=== PATIENT | male | born 1980 | race Hispanic/Latino ===

== ENCOUNTER 2022-07-09 09:11 | Inpatient (IN) | payer OTHER ==
[2022-07-09] MEDS ORDERED: LIDOCAINE VISCOUS 2% SOLN 15 ML UDC ONE (09:23)
[2022-07-09] MEDS ORDERED: MAGNES/ALUMIN/SIMET 30ML UCUP ONE (09:23)
[2022-07-09] MEDS ORDERED: LORAZEPAM 1 MG TABLET ONE (09:55)
[2022-07-09] MEDS ORDERED: MORPHINE 4 MG/ML SYR ONE (10:19)
[2022-07-09] MEDS ORDERED: ONDANSETRON 4 MG/2 ML VIAL ONE ×2 (10:20→16:00)
[2022-07-09] MEDS ORDERED: FAMOTIDINE 20 MG/2 ML VIAL IV ONE (10:20)
[2022-07-09] MEDS ORDERED: NA CHLORIDE 0.9% 1,000 ML ONE (10:20)
[2022-07-09 11:17] LABS: Albumin 4.3 g/dL (3.4-5.0); Bilirubin Total 0.4 mg/dL (0.2-1.0); Potassium 4.3 mmol/L (3.5-5.1); Protein, Total 8.9 g/dL (6.4-8.2)
[2022-07-09 11:27] LABS: Absolute Lymphocytes (CBC) 1.1 K/uL (0.7-4.9); MCV 87.4 fL (80-100); MPV 8.6 fL (7.6-11.3); RBC Red Blood Cell Count 5.72 M/uL (4.33-5.43)
--- NOTE | 2022-07-09 11:35 | RAD REPORT ---
EXAM DESCRIPTION: CT - Chest For Pe Angio - 07/09/2022 11:17 am CLINICAL HISTORY: Chest pain COMPARISON: None. TECHNIQUE: Dynamically enhanced axial 3 mm thick images of the chest were obtained during administra tion of <100> mL Isovue 370 IV contrast. Coronal and oblique reconstruction images were generated and reviewed. Exam utilizes a protocol for optimal evaluation of pulmonary arterial tree. Maximum intensity projections 3D imaging was utilized All CT scans are performed using dose optimization technique as appropriate and may include automated exposure control or mA/KV adjustment according to patient size. FINDINGS: A pulmonary embolus is not seen. A thoracic aortic aneurysm is not noted. A pleural effusion is not seen. A pericardial effusion is not seen. A lung consolidation is not present. IMPRESSION: Negative for a pulmonary embolism.
--- NOTE | 2022-07-09 11:39 | RAD REPORT ---
EXAM DESCRIPTION: US - Abdomen Exam Limited - 07/09/2022 10:07 am CLINICAL HISTORY: Abdominal pain. COMPARISON: None. FINDINGS: A 2 centimeters stone impacted in the neck of the gallbladder. The biliary tree is normal caliber. IMPRESSION: 2 centimeter impacted gallstone. No evidence of cholecystitis
--- NOTE | 2022-07-09 11:39 | RAD REPORT ---
EXAM DESCRIPTION: CT - Abdomen Pelvis W Contrast - 07/09/2022 11:18 am CLINICAL HISTORY: Abdominal pain. Epigastric pain COMPARISON: none. TECHNIQUE: Computed axial tomography of the abdomen pelvis was obtained. 100 cc Isovue-300 was admin istered intravenously. Oral contrast was not requested which limits evaluation of bowel and appendix All CT scans are performed using dose optimization technique as appropriate and may include automated exposure control or mA/KV adjustment according to patient size. FINDINGS: The liver, spleen, pancreas, adrenal and kidneys appear unremarkable. Gallbladder wall is not thickened Normal appendix Moderate left and small right inguinal hernias contain fat the. Small umbilical hernia There is no evidence of diverticulitis. IMPRESSION: No acute abnormality is displayed.
--- NOTE | 2022-07-09 13:09 | EDPHYS ---
Physician Documentation [facility] Name: James Singh Age: 41 yrs Sex: Male : 1980 Arrival Date: 07/09/2022 Time: 09:12 Bed 20 Private MD: ED Physician Wilberto Hurtado HPI: 07/09 09:30 This 41 yrs old Male presents to ER via Ambulatory with complaints of Chest jh7 Pain. 09:30 Onset: The symptoms/episode began/occurred last night. Associated signs and symptoms: jh7 Pertinent positives: abdominal pain, chest pain, vomiting, Pertinent negatives: fever, shortness of breath, wheezing. 09:30 41-year-old male with no known past medical history presents with chest pain after jh7 vomiting. The patient stated that he thinks he may have GERD and vomited 15 times last night. Reported severe chest pain after the vomiting that is substernal as well as epigastric pain. Reports that he has not seen a doctor since he was 18 years old.. Historical: - Allergies: 09:30 No Known Allergies; ph - PMHx: 09:30 None; ph - Immunization history:: Adult Immunizations unknown. - Social history:: Smoking status: Patient reports the use of cigarette tobacco products, denies chronic smoking, but will smoke occasionally, Patient uses alcohol, occasionally. ROS: 09:30 Constitutional: Negative for fever, chills, and weight loss, Eyes: Negative for injury, jh7 pain, redness, and discharge, ENT: Negative for injury, pain, and discharge, Respiratory: Negative for shortness of breath, cough, wheezing, and pleuritic chest pain, Back: Negative for injury and pain, MS/Extremity: Negative for injury and deformity, Skin: Negative for injury, rash, and discoloration, Neuro: Negative for headache, weakness, numbness, tingling, and seizure. 09:30 Cardiovascular: Positive for chest pain, Negative for orthopnea, palpitations. 09:30 Abdomen/GI: Positive for abdominal pain, nausea and vomiting, Negative for diarrhea, constipation. 09:30 All other systems are negative. Exam: 09:30 Head/Face: Normocephalic, atraumatic. Eyes: Pupils equal round and reactive to light, jh7 extra-ocular motions intact. Lids and lashes normal. Conjunctiva and sclera are non-icteric and not injected. Cornea within normal limits. Periorbital areas with no swelling, redness, or edema. ENT: Nares patent. No nasal discharge, no septal abnormalities noted. Tympanic membranes are normal and external auditory canals are clear. Oropharynx with no redness, swelling, or masses, exudates, or evidence of obstruction, uvula midline. Mucous membranes moist. Neck: Trachea midline, no thyromegaly or masses palpated, and no cervical lymphadenopathy. Supple, full range of motion without nuchal rigidity, or vertebral point tenderness. No Meningismus. Cardiovascular: Regular rate and rhythm with a normal S1 and S2. No gallops, murmurs, or rubs. Normal PMI, no JVD. No pulse deficits. Respiratory: Lungs have equal breath sounds bilaterally, clear to auscultation and percussion. No rales, rhonchi or wheezes noted. No increased work of breathing, no retractions or nasal flaring. Back: No spinal tenderness. No costovertebral tenderness. Full range of motion. Skin: Warm, dry with normal turgor. Normal color with no rashes, no lesions, and no evidence of cellulitis. MS/ Extremity: Pulses equal, no cyanosis. Neurovascular intact. Full, normal range of motion. Neuro: Awake and alert, GCS 15, oriented to person, place, time, and situation. Motor strength 5/5 in all extremities. Sensory grossly intact. Normal gait. 09:30 Constitutional: The patient appears alert, awake, in obvious distress, moderately distressed. 09:30 Chest/axilla: Palpation: tenderness, that is moderate, of the diaphragm and xiphoid area, that partially reproduces the patient's complaints. 09:30 Abdomen/GI: Inspection: abdomen appears normal, Bowel sounds: normal, Palpation: soft, in all quadrants, moderate abdominal tenderness, in the epigastric area. Vital Signs: 09:27 BP 154 / 100; Pulse 86; Resp 24; Temp 97.8; Pulse Ox 99% on R/A; Weight 90.72 kg; ph Height 5 ft. 6 in. (167.64 cm); Pain 10/10; 12:00 BP 146 / 96; Pulse 81; Resp 16; Pulse Ox 96% on R/A; Pain 4/10; eh3 09:27 Body Mass Index 32.28 (90.72 kg, 167.64 cm) ph MDM: 09:18 Patient medically screened. [facility] 13:09 Differential diagnosis: Cholecystitis, cholelithiasis, aortic dissection, pulmonary [facility] embolism, gastritis, GERD, acute [place], bowel obstruction. Data reviewed: vital signs, nurses notes. Consideration of Admission/Observation Patient was admitted/placed on observation. Management of patient was discussed with the following: Roll Carrier: French Lockett, General Surgery. I considered the following discharge prescriptions or medication management in the emergency department Medications were administered in the Emergency Department. See MAR. Independent interpretation of the following test(s) in the Emergency Department EKG: See my EKG interpretation above. Historians other than the Patient: Spouse/Significant Other: . Counseling: I had a detailed discussion with the patient and/or guardian regarding: the historical points, exam findings, and any diagnostic results supporting the discharge/admit diagnosis, the need for further work-up and treatment in the hospital. ED course: Spoke to Dr. Lockett who requested to start Zosyn, put the patient n.p.o., in order morning labs and pain meds in the admission orders. Explained to the patient that he would be admitted for surgery.. 07/09 09:32 Order name: CBC with Diff; Complete Time: 11:40 [facility] 07/09 09:32 Order name: CMP; Complete Time: 11:40 [facility] 07/09 09:32 Order name: Lipase; Complete Time: 11:40 [facility] 07/09 11:41 Order name: Troponin High Sensitivity; Complete Time: 13:01 [facility] 07/09 13:21 Order name: SARS RAPID [facility] 07/09 14:13 Order name: SARS-COV-2 Antigen Rapid; Complete Time: 15:49 [facility] 07/09 09:32 Order name: CT Abd/Pelvis - IV Contrast Only; Complete Time: 11:40 [facility] 07/09 09:32 Order name: CT Chest For PE Angio; Complete Time: 11:40 [facility] 07/09 09:32 Order name: US Abdomen Limited; Complete Time: 11:40 [facility] 07/09 09:32 Order name: IV Saline Lock; Complete Time: 10:52 [facility] 07/09 09:32 Order name: Labs collected and sent; Complete Time: 10:52 [facility] 01/15 13:07 Order name: NPO; Complete Time: 13:45 [facility] EC:18 Rate is 86 beats/min. Rhythm is regular. QRS [place] is Normal. [place] interval is normal at [facility] 136 msec. QRS interval is normal at 88 msec. QT interval is normal. No Q waves. T waves are Normal. No ST changes noted. Clinical impression: Normal ECG. Administered Medications: 09:22 Drug: GI Cocktail without - (Maalox Suspension 30 ml, Lidocaine Liquid 2 % 15 ph ml) Route: PO; 12:25 Follow up: Response: Pain is decreased eh3 09:55 Drug: Ativan (LORazepam) 1 mg Route: PO; ph 12:21 Follow up: Response: Anxiety decreased ph 11:00 Drug: NS 0.9% 1000 ml Route: IV; Rate: 1 bolus; Site: left antecubital; ph 14:42 Follow up: IV Status: Infusion continued upon admission 3 11:00 Drug: Pepcid (famotidine) 20 mg Route: IVP; Site: left antecubital; ph 12:21 Follow up: Response: No adverse reaction ph 11:02 Drug: Zofran (Ondansetron) 4 mg Route: IVP; Site: left antecubital; ph 12:21 Follow up: Response: Nausea is decreased ph 11:04 Drug: morphine 4 mg Route: IVP; Infused Over: 4 mins; Site: left antecubital; ph 12:21 Follow up: Response: Pain is decreased ph 14:00 Drug: Dilaudid (HYDROmorphone) 0.5 mg Route: IVP; Site: left antecubital; eh3 14:42 Follow up: Response: Pain is decreased eh3 14:00 Drug: Zosyn (piperacillin-tazobactam) 3.375 grams Route: IVPB; Infused Over: 60 mins; 3 Site: left antecubital; 14:42 Follow up: IV Status: Infusion continued upon admission 3 Disposition Summary: 07/09/22 13:08 Hospitalization Ordered Hospitalization Status: Inpatient Admission [facility] Provider: French Khan [facility] Location: Telemetry/MedSurg (Inpatient) [facility] Condition: Fair [facility] Problem: new [facility] Symptoms: are unchanged [facility] Bed/Room Type: Standard [facility] Room Assignment: [facility] Diagnosis - Other cholelithiasis with obstruction jh7 Forms: - Medication Reconciliation Form jh7 - SBAR form jh7 Signatures: Dispatcher [employer] Radha Stout RN RN Toshia Jacobson RN RN [facility] Hanna Burt, DB2 DBA DB2 DBA 7 Corrections: (The following items were deleted from the chart) 11:55 09:30 Associated signs and symptoms: Pertinent positives: abdominal pain, chest pain, jh7 vomiting, Pertinent negatives: fever, shortness of breath, wheezing, jh7 11:55 11:54 41-year-old male with no known past medical history presents with chest pain jh7 after vomiting. The patient stated that he thinks he may have GERD and vomited 15 times last night. Reported severe chest pain after the vomiting that is substernal as well as epigastric pain. Reports that he has not seen a doctor since he was 18 years old.. jh7
--- NOTE | 2022-07-09 13:09 | ER ---
Nurse's Notes [facility] Name: James Singh Age: 41 yrs Sex: Male : 1980 Arrival Date: 07/09/2022 Time: 09:12 Bed 20 Private MD: Diagnosis: Other cholelithiasis with obstruction Presentation: 07/09 09:27 Chief complaint: Patient states: Midsternal chest pain that radiates to L breast, ph started last night at approx 10 pm, also reports nausea and vomiting and SOB. Coronavirus screen: Vaccine status: Patient reports being unvaccinated. Ebola Screen: No symptoms or risks identified at this time. Initial Sepsis Screen: Does the patient meet any 2 criteria? No. Patient's initial sepsis screen is negative. Does the patient have a suspected source of infection? No. Patient's initial sepsis screen is negative. Risk Assessment: Do you want to hurt yourself or someone else? Patient reports no desire to harm self or others. Onset of symptoms was July 09, 2022. 09:27 Method Of Arrival: Ambulatory ph 09:27 Acuity: JULITO 2 ph Triage Assessment: 09:33 General: Appears uncomfortable, well groomed, Behavior is anxious. Pain: Complains of ph pain in left breast. Neuro: Level of Consciousness is awake, alert, obeys commands, Oriented to person, place, time, situation. Cardiovascular: Capillary refill < 3 seconds in bilateral fingers Patient's skin is warm and dry. Respiratory: Airway is patent Respiratory effort is even, unlabored, Respiratory pattern is regular, symmetrical. GI: Reports nausea, vomiting. Derm: Skin is healthy with good turgor, Skin is pink, warm \\T\\ dry. Musculoskeletal: Circulation, motion, and sensation intact. Range of motion: intact in all extremities. Historical: - Allergies: 09:30 No Known Allergies; ph - PMHx: :30 None; ph - Immunization history:: Adult Immunizations unknown. - Social history:: Smoking status: Patient reports the use of cigarette tobacco products, denies chronic smoking, but will smoke occasionally, Patient uses alcohol, occasionally. Screenin:30 [facility] ED Fall Risk Assessment (Adult) History of falling in the last 3 months, ph including since admission No falls in past 3 months (0 pts) Confusion or Disorientation No (0 pts) Intoxicated or Sedated No (0 pts) Impaired Gait No (0 pts) Mobility Assist Device Used No (0 pt) Altered Elimination No (0 pt) Score/Fall Risk Level 0 - 2 = Low Risk Oriented to surroundings, Maintained a safe environment. Abuse screen: Denies threats or abuse. Denies injuries from another. Nutritional screening: No deficits noted. Tuberculosis screening: No symptoms or risk factors identified. Assessment: 09:50 General: SEE TRIAGE ASSESSMENT. 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 ERP notified of pt's severe anxiety and PO anxiety medication ordered, see AUG. 11:09 Reassessment: Pt had 1 episode of vomiting which he states relieved his pain somewhat, ph states, " It's coming back a little but not as bad as it was." Taken to CT via stretcher. 12:00 General: Appears in no apparent distress. uncomfortable, Behavior is calm, cooperative, eh3 appropriate for age. Pain: Complains of pain in epigastric area Pain radiates to left breast Pain began suddenly. Neuro: Level of Consciousness is awake, alert, obeys commands, Oriented to person, place, time, situation. Cardiovascular: Capillary refill < 3 seconds Patient's skin is warm and dry. Rhythm is sinus rhythm. Respiratory: Airway is patent Respiratory effort is even, unlabored, Respiratory pattern is regular, symmetrical. GI: Abdomen is round non-distended, Reports upper abdominal pain, nausea, vomiting. : No signs and/or symptoms were reported regarding the genitourinary system. EENT: No signs and/or symptoms were reported regarding the EENT system. Derm: No signs and/or symptoms reported regarding the dermatologic system. Skin is pink, warm \\T\\ dry. Musculoskeletal: No signs and/or symptoms reported regarding the musculoskeletal system. Circulation, motion, and sensation intact. Range of motion: intact in all extremities. 13:00 Reassessment: Patient appears in no apparent distress at this time. Patient and/or eh3 family updated on plan of care and expected duration. Pain level reassessed. Patient is alert, oriented x 3, equal unlabored respirations, skin warm/dry/pink. Vital Signs: 09:27 BP 154 / 100; Pulse 86; Resp 24; Temp 97.8; Pulse Ox 99% on R/A; Weight 90.72 kg; ph Height 5 ft. 6 in. (167.64 cm); Pain 10/10; 12:00 BP 146 / 96; Pulse 81; Resp 16; Pulse Ox 96% on R/A; Pain 4/10; eh3 09:27 Body Mass Index 32.28 (90.72 kg, 167.64 cm) ph ED Course: 09:12 Patient arrived in ED. mr 09:18 Haileeestelle Hanna, [facility] 09:18 Wilberto Hurtado MD is Attending Physician. [facility] 09:19 Radha Jacobson, RN is Primary Nurse. ph 09:30 Triage completed. ph 09:30 Arm band placed on right wrist. Patient placed in an exam room, on supervisor refining, on ph pulse oximetry. 09:31 Patient has correct armband on for positive identification. Bed in low position. Call ph light in reach. Side rails up X 1. Client placed on continuous cardiac and pulse oximetry monitoring. NIBP monitoring applied. 09:36 Patient maintains SpO2 saturation greater than 95% on room air. ph 10:08 US Abdomen Limited In Process Unspecified. EDMS 11:19 CT Chest For PE Angio In Process Unspecified. EDMS 11:20 CT Abd/Pelvis - IV Contrast Only In Process Unspecified. EDMS 13:07 French Khan MD is Hospitalizing Provider. [facility] 13:45 SARS RAPID Sent. 3 14:43 No provider procedures requiring assistance completed. Patient admitted, IV remains in eh3 place. Administered Medications: 09:22 Drug: GI Cocktail without - (Maalox Suspension 30 ml, Lidocaine Liquid 2 % 15 ph ml) Route: PO; 12:25 Follow up: Response: Pain is decreased 3 09:55 Drug: Ativan (LORazepam) 1 mg Route: PO; ph 12:21 Follow up: Response: Anxiety decreased ph 11:00 Drug: NS 0.9% 1000 ml Route: IV; Rate: 1 bolus; Site: left antecubital; ph 14:42 Follow up: IV Status: Infusion continued upon admission 3 11:00 Drug: Pepcid (famotidine) 20 mg Route: IVP; Site: left antecubital; ph 12:21 Follow up: Response: No adverse reaction ph 11:02 Drug: Zofran (Ondansetron) 4 mg Route: IVP; Site: left antecubital; ph 12:21 Follow up: Response: Nausea is decreased ph 11:04 Drug: morphine 4 mg Route: IVP; Infused Over: 4 mins; Site: left antecubital; ph 12:21 Follow up: Response: Pain is decreased ph 14:00 Drug: Dilaudid (HYDROmorphone) 0.5 mg Route: IVP; Site: left antecubital; 3 14:42 Follow up: Response: Pain is decreased 3 14:00 Drug: Zosyn (piperacillin-tazobactam) 3.375 grams Route: IVPB; Infused Over: 60 mins; 3 Site: left antecubital; 14:42 Follow up: IV Status: Infusion continued upon admission [facility] Medication: 09:31 VIS not applicable for this client. ph Outcome: 13:08 Decision to Hospitalize by Provider. [facility] 14:40 Patient left the ED. [facility] 14:43 Admitted to OR accompanied by tech, family with patient, via wheelchair, Report called 3 to PACU 14:43 Condition: stable 14:43 Instructed on the need for admit. Signatures: Dispatcher [employer] Starla Hu Patricia, RN MAYRA Toshia Jacobson RN RN [facility] Hanna Burt, FURNACE MAINTENANCE FURNACE MAINTENANCE [facility]
[2022-07-09] MEDS ORDERED: PIPERACIL/TAZO 3.375 GM VIAL IV ONE (13:53)
[2022-07-09] MEDS ORDERED: NA CHLORIDE 0.9% 100 ML IV ONE (13:53)
[2022-07-09] MEDS ORDERED: HYDROMORPHONE HCL 0.5 MG/0.5 ML INJ ONE (13:53)
[2022-07-09 14:13] LABS: SARS-CoV-2 Antigen Rapid Res Negative (Negative)
[2022-07-09] MEDS ORDERED: BUPIVACAINE 0.25% PF 10 ML VIAL ONE (14:40)
[2022-07-09] MEDS ORDERED: Ringers Lactate 1,000 ML IV ONE (14:52)
[2022-07-09] MEDS ORDERED: ROCURONIUM 50 MG/5 ML VIAL IV ONE (15:06)
[2022-07-09] MEDS ORDERED: LIDOCAINE 2% MPF 5 ML VIAL ONE (15:06)
[2022-07-09] MEDS ORDERED: propofoL 200 MG/20 ML VIAL IV ONE (15:06)
[2022-07-09] MEDS ORDERED: FENTANYL CITR 100 MCG/2 ML ONE (15:06)
[2022-07-09] MEDS ORDERED: SUCCINYLCHOLINE 20 MG/ML (10 ML) IV ONE (15:11)
--- NOTE | 2022-07-09 15:17 | HP ---
Date of Admission: 07/09/2022 Brief History Of Present Illness: The patient is a 41-year-old male with a 3-year history o f epigastric abdominal pain. He states he has been having this on and off related to greasy meals. It would be associated with sharp pain in the right upper quadrant, sometimes radiating through to hi s back. It would be sharp, intermittent, and that would subside over time. He had bloating and naus ea with occasional vomiting associated with this. Over the past few weeks, the frequency has increas ed significantly and as such, he has noted that his pain got significantly worse, the frequency has i ncreased, and as such he came to the emergency room with the above-stated complaints. Past Medical History: Denies. Past Surgical History: Denies. Allergies: NO KNOWN DRUG ALLERGIES. Medications: None. Social History: He admits to smoking half a pack of cigarettes per day for approximately 10 years. Denies alcohol or recreational drug use. Review of Systems: Ten-point review of systems other than HPI, he feels somewhat feverish. Otherwise negative. He had no physician and has not followed up with any physician since 18 years of age. He is currently 41. Physical Examination: General: At the time of my examination; he is awake, alert, oriented. Psychiatric: Appropriate, conversive. HEENT: He is normocephalic. His sclerae are anicteric. Mucous membranes moist. Oropharynx clear. Neck: Supple without JVD. Chest: Normal expansion and excursion. Cardiovascular: Regular rate and rhythm. Pulmonary: Clear to auscultation bilaterally. Abdomen: Soft with positive epigastric and right upper quadrant tenderness to palpation. Positive M urphy sign. Positive focal guarding. He has an umbilical hernia, which is palpable, but reducible. Extremities: No clubbing, cyanosis, edema. He also feels like he has bilateral inguinal hernias. Skin: Warm and dry otherwise. Vital Signs: Blood pressure 154/100, pulse is 86, respiratory rate 24, temperature was 97.8. Laboratory Data: Revealed a white blood cell count of 14.0, hemoglobin is 17.1, hematocrit of 15.0, platelet count is 282, neutrophils are 88%. Sodium 139, potassium 4.3, chloride 105, carbon dioxide 24, BUN 11, creatinine 0.8, glucose 138, total bilirubin 0.4, AST 19, ALT 39, alkaline phosphatase is 96, lipase 71. He had imaging performed, which included an ultrasound which showed a 2 cm impacted gallstone, the biliary tree is normal in caliber. He additionally had a CT angiogram, which was nega tive for pulmonary embolus. He had a CT of the abdomen and pelvis, officially read as well, as moder ate left and small right inguinal hernias containing fat, small umbilical hernia, no evidence of dive rticulitis. Assessment And Plan: This is a 41-year-old male, who comes in with signs and symptoms of symptomatic biliary colic with an impacted gallstone. 1.IV fluid hydration. 2.Antibiotic coverage with Zosyn 3.375. 3.I have explained the risks, benefits, and alternatives of laparoscopic possible open cholecystecto my with indocyanine green including, but not limited to bleeding, infection, damage to surrounding ti ssue, injury to bile ducts and intestines, need for further operation and procedures. The patient ag gamaliel to proceed as indicated. CRYSTAL/FABY Voice ID: [id number]
[2022-07-09] MEDS ORDERED: dexAMETHasone 10 MG/ML VIAL ONE (15:59)
[2022-07-09] MEDS ORDERED: KETOROLAC 30 MG/ML INJ ONE (16:00)
[2022-07-09] MEDS ORDERED: GLYCOPYRROLATE 0.2 MG/ML SYR ONE ×2 (16:09→16:10)
[2022-07-09] MEDS ORDERED: NEOSTIGMINE 1 MG/ML -10 ML VIAL ONE (16:11)
--- NOTE | 2022-07-09 16:18 | P.OP ---
Preoperative diagnosis: Acute Calculous Cholecystitis Postoperative diagnosis: Acute Calculous Cholecystitis Primary procedure: Laparoscopic Cholecystectomy with ICG Cholangiography Anesthesia: GETA + Local Estimated blood loss: <10cc Specimen: Gallbladder Findings: Acute Calculous Cholecystitis Complications: None Transferred to: Recovery Room Condition: Good
[2022-07-09] MEDS: HYDROMORPHONE HCL 1 MG/ML INJ ONE ×2 (16:48→16:59)
[2022-07-09 16:53] VITALS: O2SAT 98
[2022-07-09] MEDS ORDERED: HYDROMORPHONE HCL 1 MG/ML INJ IV PRN (16:56)
[2022-07-09] MEDS ORDERED: HYDROCODONE/APAP 7.5/325 MG TAB PO PRN (16:56)
[2022-07-09] MEDS ORDERED: ONDANSETRON 4 MG/2 ML VIAL IV PRN ×2 (16:56)
[2022-07-09] MEDS ORDERED: MORPHINE 4 MG/ML SYR IV PRN (16:56)
[2022-07-09] MEDS: NA CHLORIDE 0.9% 1,000 ML IV SCH (17:14)
[2022-07-09] MEDS: PIPER TAZO 3.375 GM in NA CHLORIDE 0.9% 100 ML IV SCH (17:15)
[2022-07-09 17:30] VITALS: BMI 32.3
--- NOTE | 2022-07-09 20:02 | OP ---
Date of Procedure: 07/09/2022 Surgeon: French Khan MD, Preoperative Diagnosis: Acute calculous cholecystitis. Postoperative Diagnosis: Acute calculous cholecystitis. Procedure Performed: Laparoscopic cholecystectomy with ICG (indocyanine green cholangiography). Anesthesia: General endotracheal plus local with 0.25% Marcaine. Estimated Blood Loss: Less than 10 cc. Specimen: Gallbladder. Findings: Acute calculous cholecystitis. Complications: None. Disposition: The patient was transferred to the recovery room in good condition. Procedure In Detail: After informed consent was obtained, the patient brought to the operating room, prepped and draped in the usual sterile fashion after adequate anesthesia was achieved. A supraumbi lical area was anesthetized with 0.25% Marcaine, sharply incised, and a 5 mm trocar was placed under direct visualization without evidence of complication. Insufflation obtained to 15 mmHg at this time . There was no injury to vital structures upon entry into the abdomen. Two additional trocars were placed, 1 in the epigastrium and 1 in the right upper quadrant. Both of these were 5 mm trocars plac ed under direct visualization without evidence of any complication. The umbilical trocar was then up sized to a 12 mm under direct visualization without evidence of complication. The patient was then p ositioned head up right-side up position. Ratcheted graspers were used to grasp the patient's gallbl adder, which was found to be acutely inflamed with early ischemic changes. Significant omental attac hments were noted on the anterior surface completely encasing the gallbladder. This was taken down u sing electrocautery. At this point, I dissected down to the Augustus's pouch of the gallbladder wher e a stone was impacted in the neck of the gallbladder. Grasping was difficult at this point, and as such, a decompression needle was brought in, placed into the fundus of the gallbladder and the gallbl adder was decompressed at this point demarcating the impacted stone at the fundus as well. I dissect ed circumferentially around the fundus of the gallbladder, skeletonizing 2 structures, identified as both the cystic duct and cystic artery. These were skeletonized and a critical view of safety was ob tained at this point. ICG cholangiography was performed at this point confirming the anatomic landma rks as described. At this point, double titanium clips were placed, doubly on the proximal side and singly on the distal side, both the cystic duct and cystic artery. These structures were then ligate d using Endo Elais. The gallbladder was then removed from the hepatic fossa without evidence of com plication. The gallbladder was placed in an EndoCatch bag, removed through the umbilical trocar, and was sent off for pathological examination. At this point, the area was copiously irrigated. There were no additional hemostatic maneuvers required at the gallbladder after suctioning of all the efflu ent. There was no bleeding. The clips were found to be in good anatomic position without any eviden ce of bleeding or bile leakage. The patient was positioned back in a neutral position and remaining effluent was suctioned out. The hepatic fossa was inspected one last time, found to be intact withou t any maneuvers being required. The umbilical trocar site was then closed using a Med soto ture passer with 0 Vicryl in a running fashion with good approximation of tissues. The abdomen was c ompletely desufflated under direct visualization without evidence of complication. The all remaining skin incisions were copiously irrigated and closed with a 4-0 Monocryl in a running fashion. Dermab ond placed over top. The patient tolerated the procedure well without evidence of complication and t ransferred to PACU in good condition. All counts were correct at the end of the case. CRYSTAL/FABY Voice ID: [id number] Report ID: [id number]
[2022-07-10] MEDS: PIPER TAZO 3.375 GM in NA CHLORIDE 0.9% 100 ML IV SCH ×2 (00:19→07:54)
[2022-07-10] MEDS: NA CHLORIDE 0.9% 1,000 ML IV SCH (04:39)
[2022-07-10 06:11] LABS: Absolute Lymphocytes (CBC) 1.8 K/uL (0.7-4.9); Lymphocytes % 14.6 % (15.3-44.8); MCV 88.1 fL (80-100); MPV 8.5 fL (7.6-11.3)
[2022-07-10 06:24] LABS: Albumin 3.4 g/dL (3.4-5.0); Bilirubin Direct 0.1 mg/dL (0-0.2); Bilirubin Total 0.6 mg/dL (0.2-1.0); Protein, Total 7.4 g/dL (6.4-8.2)
[2022-07-10] MEDS ORDERED: INFLUENZA VACCINE (for 6+ mo) 0.5 ML DOSE IMVAC ONE (08:00)
[2022-07-10 09:12] VITALS: BP 109/67; TEMP 98
--- NOTE | 2022-07-10 17:34 | EKG ---
Test Date: 2022-07-09 Test Time: 09:18:03 Production Mechanic: VAN MEASUREMENT RESULTS: Intervals: Rate: 86 IN: 136 QRSD: 88 QT: 374 QTc: 447 Kenton: P: 66 IN: 136 QRS: 46 T: 30 INTERPRETIVE STATEMENTS: Normal sinus rhythm Normal ECG No previous ECG available for comparison Electronically Signed On 07-10-22 17:31:44 OUTSOLE LEVELER by Keith Eid
== END 2022-07-10 11:30 | disposition home or self-care (01) | DRG 416 ==
LOC: ER 09:11 → ERHOLD 13:15 → 4TH 14:50
PROVIDERS: ADMIT Surgery; ATTEND Surgery
PROC: 0FJ44ZZ Inspection of Gallbladder, Percutaneous Endoscopic Approach (ICD-10-PCS; 2022-07-09)
PROC: BF50200 Other Imaging of Bile Ducts using Fluorescing Agent, Indocyanine Green Dye, Intraoperative (ICD-10-PCS; 2022-07-09)
PROC: 0FT40ZZ Resection of Gallbladder, Open Approach (ICD-10-PCS; principal; 2022-07-09 16:00)
DX: K80.00 Calculus of gallbladder with acute cholecystitis without obstruction (principal); K40.20 Bilateral inguinal hernia, without obstruction or gangrene, not specified as recurrent; K42.9 Umbilical hernia without obstruction or gangrene; F17.210 Nicotine dependence, cigarettes, uncomplicated; Z20.822 Contact with and (suspected) exposure to COVID-19
CPT/HCPCS: 36415; 71275; 74177; 76705; 80053; 80076; 82565; 83690; 84484; 85025; 87811; 88304; 93005; 96361; 96365; 96375; 99285; J0330; J1100; J1170; J2001; J2405; J2543; J2704; J2710; J3010; J7030; J7120; Q9967